=== PATIENT | male | born 1935 | race Caucasian/White ===

== ENCOUNTER 2020-08-04 09:21 | Inpatient (IN) ==
--- NOTE | 2020-08-04 09:53 | ERNOTE ---
Trauma/Assault HPI - General Stated Complaint: weak not feeling well Time Seen by Provider: 08/04/20 09:38 Source: patient, family Exam Limitations: no limitations - Immun/Allergies/Home Medications Immunizations: IMMUNIZATION HX Immunizations Up to Date Yes History of Influenza Vaccine Yes Hx Pneumococcal Vaccination No Allergies/Adverse Reactions: Allergies No Known Allergies Allergy (Verified 08/04/20 09:23) Home Medications: HOME MEDICATIONS cyanocobalamin (vitamin B-12) 1,000 mcg tablet 1,000 mcg PO DAILY #30 tab 02/26/18 [Last Taken Unknown] albuterol sulfate 90 mcg/actuation breath activated powder inhaler 2 inh INHALATION Q6H #1 ea 08/29/19 [Last Taken Unknown] fluticasone propionate 115 mcg-salmeterol 21 mcg/actuation HFA inhaler 2 inh IH BID #12 g 08/30/19 [Last Taken Unknown] furosemide 20 mg tablet 20 mg PO DAILY #30 tab 06/08/20 [Last Taken Unknown] ipratropium 0.5 mg-albuterol 3 mg (2.5 mg base)/3 mL nebulization soln 3 ml IH BID #15 ml 07/02/20 [Last Taken Unknown] Simvastatin [Zocor] 20 mg PO HS 08/04/20 [Last Taken Unknown] Umeclidinium [place] [Incruse Ellipta] 62.5 mcg IH DAILY 08/04/20 [Last Taken Unknown] - History of Present Illness Narrative: Patient states he started feeling bad last week being more weak and tired. He had an episode at least 3 days ago where he believes he passed out and fell. He states since that time he has hardly been able to get up out of bed. He has more shortness of breath some mild cough and increased sputum. Location Occurred: Reports: home Pain Location: Reports: head, back - lower Method of Injury: Reports: fall Severity: mild Modifying Factors - (Improves): Reports: rest Loss of Consciousness: Reports: brief (seconds) Review of Systems - Review of Systems Constitutional: Absent: recent illness, fever, chills EYE: Absent: vision changes ENT: Absent: nose congestion, nasal drainage Respiratory: Present: See HPI, shortness of breath, cough Cardiology: Absent: chest pain, palpitations Gastrointestinal/Abdominal: Present: constipation. Absent: nausea, vomiting, abdominal pain Genitourinary: Absent: frequency, dysuria Musculoskeletal: Present: back pain Skin: Present: dryness, change in color Neurological: Present: dizziness/light-headedness. Absent: numbness, tingling Endocrine: Absent: excessive sweating Hematologic/Lymphatic: Present: easy bruising Medical History (Last Reviewed 08/04/20 @ 09:49 by Ki Lozano DO) AAA (abdominal aortic aneurysm) COPD (chronic obstructive pulmonary disease) Onset Date: Unknown Hyperlipemia Hypertension Onset Date: Unknown Surgical History: Surgical History (Last Reviewed 08/04/20 @ 09:49 by Ki Lozano DO) H/O hernia repair Onset Date: Unknown Family History: Family History (Last Reviewed 08/04/20 @ 09:49 by Ki Lozano DO) Brother Heart disease Social History: (Last Reviewed 08/04/20 @ 09:49 by Ki Lozano DO) Social History: Marital status: household members: spouse Highest level of school completed/degree received: high school graduate Service: No Tobacco: Smoking Status: Former smoker Alcohol: alcohol intake: current Substance Use: substance use type: does not use Dietary Habits: caffeine: Yes Physical Exam - Physical Exam General Appearance: Present: wd/wn, alert, mild distress Head Exam: Present: normal inspection, no evidence of injury Ears, Nose, Throat: Present: normal except -, dry mucous membranes Neck: Present: normal inspection, nontender, supple Respiratory: Present: chest nontender, decreased breath sounds, rales Cardiovascular/Chest: Present: no murmur, tachycardia Gastrointestinal/Abdominal: Present: normal bowel sounds, nontender, nondistended, soft Back Exam: Present: decreased range of motion, muscle spasm Extremity Exam: Present: normal except -, extremity edema - Right greater than left patient states the right is usually more swollen Neurological Exam: Present: alert, oriented, normal mood/affect, no motor/sensory deficits Skin Exam: Present: other - Bruises and dry flaky skin throughout Lymphatic Exam: Present: no adenopathy Detailed Trauma Exam Best Eye Response (Shanell): (4) open spontaneously Best Verbal Response (Shanell): (5) oriented Best Motor Response ([place]): (6) obeys commands Shanell Total: 15 - C-Spine cleared by: Neg history & exam Progress - Results and Orders Patient's Lab Results:: I have reviewed the patient's lab results. Results and Orders: Laboratory Tests 08/04/20 08/04/20 08/04/20 09:37 10:10 10:10 WBC 11.3 H Hgb 10.1 L Hct 32.8 L Plt Count 257 Neutrophils % 87.4 H D-Dimer pCO2 pO2 HCO3 Total CO2 Base Excess ABG pH ABG O2 Sat (Measured) Sodium 136 Potassium 4.1 Chloride 98 BUN 41 H D Creatinine 1.95 H D BUN/Creatinine Ratio 21.0 Random Glucose 98 Lactic Acid, Venous Calcium 8.2 Total Bilirubin 0.8 AST 22 ALT 22 Troponin I 0.260 H* B-Natriuretic Peptide Greater than 34662 H SARS-CoV-2 (PCR) Not detected 08/04/20 08/04/20 08/04/20 10:10 10:10 10:31 WBC Hgb Hct Plt Count Neutrophils % D-Dimer 6.02 H pCO2 45.6 pO2 52.5 L HCO3 29.7 H Total CO2 31.1 H Base Excess 4.8 H ABG pH 7.43 ABG O2 Sat (Measured) 87.9 L Sodium Potassium Chloride BUN Creatinine BUN/Creatinine Ratio Random Glucose Lactic Acid, Venous 1.7 Calcium Total Bilirubin AST ALT Troponin I B-Natriuretic Peptide SARS-CoV-2 (PCR) - Vital Signs Patient's Vital Signs:: I have reviewed the patient's vital signs. Vital Signs: Vital Signs 08/04/20 09:22 Temperature 36.4 C Pulse Rate 110 H Respiratory Rate 28 H Blood Pressure 87/51 L O2 Sat by Pulse Oximetry 80 L - EKG EKG #1 EKG: NSR, premature ventricular contraction, nonspecific ST T wave changes EKG read: Interp. by me - X-Ray X-Ray #1 X-Ray: chest Interpretation: Reviewed by me X-ray Comments: IMPRESSION: NO APPRECIABLE INTERVAL CHANGE SINCE TO 05/22/2000 STUDY, DEMONSTRATING EXTENSIVE BILATERAL BULLOUS EMPHYSEMA AND CHRONIC PLEURAL THICKENING AND/OR PLEURAL FLUID. NO DEFINITE NEW OR ACUTE INFILTRATES OR EFFUSIONS. Electronically signed by Jerrod Yadav MD. - CT/Ultrasound CT/Ultrasound Narrative: CT lumbar spine: IMPRESSION: 1. SUSPECTED ACUTE, COMMINUTED, MILD TO MODERATELY DISPLACED COMPRESSION FRACTURE OF L1. RETROPULSION OF THE POSTERIOR SUPERIOR L1 ENDPLATE CAUSING MODERATE SPINAL CANAL AND BILATERAL LATERAL RECESS NARROWING. 2. 4.6 CM FUSIFORM INFRARENAL ABDOMINAL AORTIC ANEURYSM. FINDINGS DISCUSSED WITH THE EMERGENCY DEPARTMENT PHYSICIAN AT 1320 HOURS. Electronically signed by Jerrod Yadav MD. CTA chest: IMPRESSION: NO ACUTE PULMONARY EMBOLUS. EXTENSIVE BILATERAL PULMONARY BOLUS EMPHYSEMA AND SCARRING WITH INCREASED PLEURAL AND PARENCHYMAL OPACITIES SUGGESTING POSSIBLE ACUTE PNEUMONIA AND/OR ATELECTASIS. CLINICAL AND LAB CORRELATION RECOMMENDED. MODERATE COMPRESSION FRACTURE OF L1, NEW SINCE THE PRIOR JUNE 2019 CT CHEST AND THE MAY 2020 2 VIEW CHEST X-RAY. CORRELATION WITH PATIENT HISTORY RECOMMENDED. Electronically signed by Jerrod Yadav MD. - Progress/Reassessment Chief Complaint: Fall Progress:: Improved Progress Note-Subjective: 08/04/20 13:[address] Dominguez about admission he agrees with admission Departure Clinical Impression: Pneumonia Qualifiers: Pneumonia type: due to unspecified organism Laterality: bilateral Lung location: lower lobe of lung Qualified Code(s): J18.9 - Pneumonia, unspecified organism CHF (congestive heart failure) Qualifiers: Heart failure type: diastolic Heart failure chronicity: acute on chronic Qualified Code(s): I50.33 - Acute on chronic diastolic (congestive) heart failure Lumbar compression fracture Qualifiers: Lumbar vertebra fracture level: L1 Fracture healing: with routine healing - Departure Disposition: Still a patient Condition: Stable Critical Care Time - Critical Care Critical Time Spent:: No
[2020-08-04] MEDS ORDERED: NORMAL SALINE 1,000 ML IV ONE (09:57)
[2020-08-04 10:15] LABS: Hematocrit 32.8 % (42.0-52.0); Hemoglobin 10.1 gm/dL (13.5-18.0); Mean Cell Volume 92.1 fl (78-100); Mean Corpuscular Hemoglobin 28.4 pg (27-31); Mean Corpuscular Hgb Conc 30.8 g/dl (32-36); Mean Platelet Volume 9.9 fl (8-11.3); Neutrophil # 9.9 K/mm3 (1.3-6.0); Neutrophil % 87.4 % (42-75.0); Platelet Count 257 K/mm3 (150-450); Red Blood Count 3.56 M/mm3 (4.7-6.0); Red Cell Distribution Width 15.9 % (11.5-14.0); White Blood Count 11.3 K/mm3 (4.0-10.5)
[2020-08-04 10:34] LABS: ALT 22 U/L (19-67); AST 22 U/L (0-48); Alkaline Phosphatase * 101 U/L (50-170); Anion Gap 9.7 mmol/L (6.8-13.8); BNP * Greater than 35000 pg/mL (5-650); Bilirubin, Total 0.8 mg/dL (0.0-1.1); Blood Urea Nitrogen 41 mg/dL (6-23); Ca. Corrected For Albumin 9.5 mg/dL (8.4-10.2); Calcium * 8.2 mg/dL (7.9-10.9); Carbon Dioxide 32.4 mmol/L (24-32.6); Chloride 98 mmol/L (97-106); Glucose * 98 mg/dL (70-110); Potassium 4.1 mmol/L (3.4-4.6); Sodium 136 mmol/L (132-142); Total Protein 7.3 gm/dL (6.2-8.2)
[2020-08-04] MEDS ORDERED: cefTRIAXone SODIUM 1,000 MG/100 ML BAG IV ONE (13:21)
[2020-08-04] MEDS ORDERED: AZITHROMYCIN 250 MG TABLET PO ONE (13:21)
--- NOTE | 2020-08-04 14:47 | HP ---
Chief Complaint - Chief Complaint Date of Service: 08/04/20 Time of Service: 14:47 Chief Complaint: Weakness, falls, shortness of breath History of Present Illness: Frank is an 85 yo male with chronic respiratory failure secondary to emphysema. He is on 2lpm continuous at home. He reports for the last month he has been progressively weaker and short of breath. He has had falls at home with no specific injury. He does report some low back pain at times, but nothing significant. He presented to the [facility] ER for fall and gradually worsen strength and breathing. Evaluation in the ER showed BNP of 30K, leukocytosis of 11.3, and elevated D-dimer. Chest CT was completed which showed pneumonia and imaging also showed compression fracture of L1. He does mention low back pain at times but reports it does not usually bother him that much. He reports occasional cough, denies fever or chills, but does admit to worsening shortness of breath. COVID was negative. Medical History (Last Reviewed 08/04/20 @ 14:20 by Stephanie Amor RN) AAA (abdominal aortic aneurysm) COPD (chronic obstructive pulmonary disease) Onset Date: Unknown Hyperlipemia Hypertension Onset Date: Unknown Surgical History: Surgical History (Last Reviewed 08/04/20 @ 14:20 by Stephanie Amor RN) H/O hernia repair Onset Date: Unknown Family History: Family History (Last Reviewed 08/04/20 @ 14:20 by Stephanie Amor RN) Brother Heart disease Social History: (Last Updated 08/04/20 @ 14:21 by Stephanie Amor RN) Social History: Marital status: / household members: family Highest level of school completed/degree received: high school graduate Service: No Tobacco: Smoking Status: Former smoker Alcohol: alcohol intake: current Substance Use: substance use type: does not use Dietary Habits: caffeine: Yes Review Of Systems (GEN) - Review of Systems Generalized/Overall Review: Present: Weakness. Absent: Chills, Fever EENTM: Present: No Symptoms Reported Respiratory: Present: Cough, Shortness of Breath Cardiac: Absent: Chest Pain, Edema, Palpitations, Syncope Abdominal: Absent: Nausea, Vomiting, Hematemesis, Abdominal Pain Genitourinary: Present: No Symptoms Reported Musculoskeletal: Present: Back Pain Neurological: Present: No Symptoms Reported Skin: Present: No Symptoms Reported Endocrine: Present: No Symptoms Reported Immunizations: IMMUNIZATION HX Immunizations Up to Date Yes History of Influenza Vaccine Yes Hx Pneumococcal Vaccination No Allergies/Adverse Reactions: Allergies Allergy/AdvReac Type Severity Reaction Status Date / Time No Known Allergies Allergy Verified 08/04/20 09:23 Home Medications: HOME MEDICATIONS cyanocobalamin (vitamin B-12) 1,000 mcg tablet 1,000 mcg PO DAILY #30 tab 02/26/18 [Last Taken Unknown] albuterol sulfate 90 mcg/actuation breath activated powder inhaler 2 inh INHALA TION Q6H #1 ea 08/29/19 [Last Taken Unknown] fluticasone propionate 115 mcg-salmeterol 21 mcg/actuation HFA inhaler 2 inh IH BID #12 g 08/30/19 [Last Taken Unknown] furosemide 20 mg tablet 20 mg PO DAILY #30 tab 06/08/20 [Last Taken Unknown] ipratropium 0.5 mg-albuterol 3 mg (2.5 mg base)/3 mL nebulization soln 3 ml IH BID #15 ml 07/02/20 [Last Taken Unknown] Simvastatin [Zocor] 20 mg PO HS 08/04/20 [Last Taken Unknown] Umeclidinium [place] [Incruse Ellipta] 62.5 mcg IH DAILY 08/04/20 [Last Taken Unknown] Exam - Exam Vital Signs: Vital Signs - Last Taken Temp 36.9 C 08/04/20 14:15 Pulse 73 08/04/20 14:15 Resp 24 H 08/04/20 14:15 BP 112/60 08/04/20 14:15 Pulse Ox 92 L 08/04/20 14:15 Constitutional: Present: Alert, Oriented x3, Cooperative, No distress ENT Exam: Present: hearing grossly normal Eye Exam: bilateral eye: normal inspection Respiratory: Present: decreased breath sounds, wheezing, other - mild respiratory distress with tachypnea Cardiovascular/Chest: Present: no murmur, other - irregular Peripheral Pulses: radial (R): 2+, radial (L): 2+ Abdomen: Present: Normal bowel sounds, soft, nontender, nondistended Skin Exam: Present: normal color, warm/dry, no cyanosis Lymphatic: Present: no adenopathy Appearance: Present: appropriate appearance, appropriate insight Eye contact: Present: cooperative, good eye contact, normal speech Thoughts: Present: normal thought pattern, no apparent hallucination Diagnostic Studies: Abnormal Lab Results 08/04/20 08/04/20 08/04/20 Range/Units 10:10 10:10 10:10 WBC 11.3 H (4.0-10.5) K/mm3 RBC 3.56 L (4.7-6.0) M/mm3 Hgb 10.1 L (13.5-18.0) gm/dL Hct 32.8 L (42.0-52.0) % MCHC 30.8 L (32-36) g/dl RDW 15.9 H (11.5-14.0) % Immature Gran % (Auto) 0.90 H (0.001-0.429) % Immature Gran # (Auto) 0.10 H (0.000-0.0310) K/mm3 Neutrophils % 87.4 H (42-75.0) % Lymphocytes % 5.6 L (20-51) % Neutrophils # 9.9 H (1.3-6.0) K/mm3 Lymphocytes # 0.64 L (1.5-3.5) k/mm3 D-Dimer 6.02 H (0.19-0.49) ug/mL pO2 (83.0-108.0) mmHg HCO3 (21.0-28.0) mmol/L Total CO2 (19.0-24.0) mmol/L Base Excess (-2.0-3.0) mmol/L ABG O2 Sat (Measured) (94.0-98.0) % BUN 41 H D (6-23) mg/dL Creatinine 1.95 H D (0.4-1.4) mg/dL Est GFR (Non-Af Amer) 35 L D (60-130) mL/min Troponin I 0.260 H* (0.00-0.10) ng/mL B-Natriuretic Peptide Greater [place] 18064 H (5-650) pg/mL Albumin 2.0 L (3.4-5.0) gm/dl 08/04/20 08/04/20 Range/Units 10:31 12:23 WBC (4.0-10.5) K/mm3 RBC (4.7-6.0) M/mm3 Hgb (13.5-18.0) gm/dL Hct (42.0-52.0) % MCHC (32-36) g/dl RDW (11.5-14.0) % Immature Gran % (Auto) (0.001-0.429) % Immature Gran # (Auto) (0.000-0.0310) K/mm3 Neutrophils % (42-75.0) % Lymphocytes % (20-51) % Neutrophils # (1.3-6.0) K/mm3 Lymphocytes # (1.5-3.5) k/mm3 D-Dimer (0.19-0.49) ug/mL pO2 52.5 L (83.0-108.0) mmHg HCO3 29.7 H (21.0-28.0) mmol/L Total CO2 31.1 H (19.0-24.0) mmol/L Base Excess 4.8 H (-2.0-3.0) mmol/L ABG O2 Sat (Measured) 87.9 L (94.0-98.0) % BUN (6-23) mg/dL Creatinine (0.4-1.4) mg/dL Est GFR (Non-Af Amer) (60-130) mL/min Troponin I 0.225 H* (0.00-0.10) ng/mL B-Natriuretic Peptide (5-650) pg/mL Albumin (3.4-5.0) gm/dl Laboratory Results WBC 11.3 K/mm3 (4.0-10.5) H 08/04/20 10:10 RBC 3.56 M/mm3 (4.7-6.0) L 08/04/20 10:10 Hgb 10.1 gm/dL (13.5-18.0) L 08/04/20 10:10 Hct 32.8 % (42.0-52.0) L 08/04/20 10:10 MCV 92.1 fl (78-100) 08/04/20 10:10 MCH 28.4 pg (27-31) 08/04/20 10:10 MCHC 30.8 g/dl (32-36) L 08/04/20 10:10 RDW 15.9 % (11.5-14.0) H 08/04/20 10:10 Plt Count 257 K/mm3 (150-450) 08/04/20 10:10 MPV 9.9 fl (8-11.3) 08/04/20 10:10 Immature Gran % (Auto) 0.90 % (0.001-0.429) H 08/04/20 10:10 Immature Gran # (Auto) 0.10 K/mm3 (0.000-0.0310) H 08/04/20 10:10 Neutrophils % 87.4 % (42-75.0) H 08/04/20 10:10 Lymphocytes % 5.6 % (20-51) L 08/04/20 10:10 Monocytes % 5.2 % (0.0-9) 08/04/20 10:10 Eosinophils % 0.7 % (0.0-3.0) 08/04/20 10:10 Basophils % 0.2 % (0.0-1.0) 08/04/20 10:10 Nucleated RBC % 0.0 k/mm3 (0-1) 08/04/20 10:10 Neutrophils # 9.9 K/mm3 (1.3-6.0) H 08/04/20 10:10 Lymphocytes # 0.64 k/mm3 (1.5-3.5) L 08/04/20 10:10 Monocytes # 0.6 k/mm3 (0.0-1.0) 08/04/20 10:10 Eosinophils # 0.1 k/mm3 (0.0-0.7) 08/04/20 10:10 Absolute Basophils 0.0 k/mm3 (0.0-0.1) 08/04/20 10:10 D-Dimer 6.02 ug/mL (0.19-0.49) H 08/04/20 10:10 pCO2 45.6 mmHg (35.0-48.0) 08/04/20 10:31 pO2 52.5 mmHg (83.0-108.0) L 08/04/20 10:31 HCO3 29.7 mmol/L (21.0-28.0) H 08/04/20 10:31 Total CO2 31.1 mmol/L (19.0-24.0) H 08/04/20 10:31 Base Excess 4.8 mmol/L (-2.0-3.0) H 08/04/20 10:31 ABG pH 7.43 (7.35-7.45) 08/04/20 10:31 ABG O2 Sat (Measured) 87.9 % (94.0-98.0) L 08/04/20 10:31 Sodium 136 mmol/L (132-142) 08/04/20 10:10 Plasma Sodium 136 mmol/L (130-142) 08/04/20 10:10 Potassium 4.1 mmol/L (3.4-4.6) 08/04/20 10:10 Chloride 98 mmol/L (97-106) 08/04/20 10:10 Carbon Dioxide 32.4 mmol/L (24-32.6) 08/04/20 10:10 Anion Gap 9.7 mmol/L (6.8-13.8) 08/04/20 10:10 BUN 41 mg/dL (6-23) H D 08/04/20 10:10 Creatinine 1.95 mg/dL (0.4-1.4) H D 08/04/20 10:10 Est GFR (Non-Af Amer) 35 mL/min (60-130) L D 08/04/20 10:10 BUN/Creatinine Ratio 21.0 (9.0-21.6) 08/04/20 10:10 Random Glucose 98 mg/dL (70-110) 08/04/20 10:10 Lactic Acid, Venous 1.7 mmol/L (0.4-2.0) 08/04/20 10:10 Calcium 8.2 mg/dL (7.9-10.9) 08/04/20 10:10 Calcium Adj for Albumin 9.5 mg/dL (8.4-10.2) 08/04/20 10:10 Total Bilirubin 0.8 mg/dL (0.0-1.1) 08/04/20 10:10 AST 22 U/L (0-48) 08/04/20 10:10 ALT 22 U/L (19-67) 08/04/20 10:10 Alkaline Phosphatase 101 U/L (50-170) 08/04/20 10:10 Troponin I 0.225 ng/mL (0.00-0.10) H* 08/04/20 12:23 B-Natriuretic Peptide Greater than 92291 pg/mL (5-650) H 08/04/20 10:10 Total Protein 7.3 gm/dL (6.2-8.2) 08/04/20 10:10 Albumin 2.0 gm/dl (3.4-5.0) L 08/04/20 10:10 SARS-CoV-2 (PCR) Not detected (NotDetected) 08/04/20 09:37 Assessment/Plan - Narrative Narrative: Frank is an 85 yo male with acute on chronic respiratory failure secondary to a combination of community acquired pneumonia (based on Chest CT in bibasilar lung magana and leukocytosis) and acute on chronic diastolic CHF based on BNP of >30k and lower extremity edema. He was hypoxic at 80% on his usual 2lpm of oxygen that he uses continuously at home for COPD. He does not appear to be in a COPD exacerbation. He will be treated with rocephin/azithromycin for pneumonia and lasix IV prn for CHF exacerbation. Will use 3lpm of oxygen at this time but with treatment will attempt to wean back to home O2 of 2lpm. His Chest CT showed no evidence of pulmonary embolism and COVID was negative, however Chest CT did show a 4cm AAA and an L1 compression fracture that is contributing to his frailty and weakness. He does have some low back pain but it appears to be mild. This will be followed as outpatient at this time. Will admit to acute inpatient status due to acute on chronic respiratory failure due to pneumonia and CHF. His pneumonia is significant and requires inpatient treatment due to his age and elevated BUN giving him a 6.8% 30 days all cause mortality on his CURB-65 pneumonia severity score. His status will be inpatient and will consult PT due to his weakness and low back pain. He may need rehab at a nursing facility following inpatient discharge in approximately 3-4 days. - Assessment/Plan (1) Acute and chronic respiratory failure Problem: Acute Qualifiers: Respiratory failure complication: hypoxia Qualified Code(s): J96.21 - Acute and chronic respiratory failure with hypoxia (2) Pneumonia Problem: Acute Qualifiers: Pneumonia type: due to unspecified organism Laterality: bilateral Lung location: lower lobe of lung Qualified Code(s): J18.9 - Pneumonia, unspecified organism (3) CHF (congestive heart failure) Problem: Chronic Qualifiers: Heart failure type: diastolic Heart failure chronicity: acute on chronic Qualified Code(s): I50.33 - Acute on chronic diastolic (congestive) heart failure (4) AAA (abdominal aortic aneurysm) without rupture Problem: Chronic (5) COPD (chronic obstructive pulmonary disease) Problem: Chronic Qualifiers: COPD type: emphysema Emphysema type: panlobular Qualified Code(s): J43.1 - Panlobular emphysema (6) CKD (chronic kidney disease) Problem: Chronic Qualifiers: Chronic kidney disease stage: stage 3 (moderate) (7) Lumbar compression fracture Problem: Acute Qualifiers: Lumbar vertebra fracture level: L1
[2020-08-04] MEDS ORDERED: ACETAMINOPHEN 500 MG TABLET PO PRN (14:48)
[2020-08-04] MEDS: ALBUTEROL SULFATE 2.5 MG/0.5 ML VIAL.NEB IH SCH ×2 (17:08→18:05)
[2020-08-04] MEDS: ALBUTEROL SULFATE/IPRATROPIUM 3 ML NEBU IH SCH ×2 (17:09→18:05)
[2020-08-04] MEDS: BUDESONIDE 0.25 MG/2 ML VIAL.NEB PO SCH ×2 (17:09→18:05)
[2020-08-04 20:12] LABS: Urine Bilirubin Negative (NEGATIVE); Urine Blood 25 /ul (NEGATIVE); Urine Ketone 5 mg/dL (NEGATIVE); Urine Nitrite Negative (NEGATIVE); Urine Protein Negative (NEGATIVE); Urine Specific Gravity 1.015 SP.GR. (1.005-1.030); Urine Urobilinogen Normal (NORMAL); Urine pH 5.5 pH (5.0-7.0)
[2020-08-04 20:21] LABS: Urine Appearance Clear (CLEAR); Urine Bacteria 1+; Urine Color Yellow; Urine RBC 0-5 /hpf (0-5); Urine WBC None Seen /hpf (0-5)
[2020-08-04] MEDS: SIMVASTATIN 20 MG TABLET PO SCH (20:36)
[2020-08-05] MEDS: ALBUTEROL SULFATE 2.5 MG/0.5 ML VIAL.NEB IH SCH ×4 (00:31→18:03)
[2020-08-05] MEDS: ALBUTEROL SULFATE/IPRATROPIUM 3 ML NEBU IH SCH ×2 (06:42→18:02)
[2020-08-05] MEDS: BUDESONIDE 0.25 MG/2 ML VIAL.NEB PO SCH ×2 (06:43→18:03)
[2020-08-05] MEDS: AZITHROMYCIN 250 MG TABLET PO SCH (09:01)
[2020-08-05] MEDS: TIOTROPIUM BROMIDE 5 CAP INHALER IH SCH (09:01)
[2020-08-05] MEDS: CYANOCOBALAMIN 1,000 MCG TABLET PO SCH (09:02)
[2020-08-05] MEDS ORDERED: FUROSEMIDE 10 MG/ML VIAL IV ONE (13:06)
[2020-08-05] MEDS: SIMVASTATIN 20 MG TABLET PO SCH (21:38)
--- NOTE | 2020-08-05 21:39 | PN ---
Subjective - Date and Time Seen Date: 08/05/20 Time: 10:15 Subjective Narrative: Frank reports no significant change. Nursing had to increase his oxygen from 3lpm to 5lpm earlier this morning and then was able to wean down to 4lpm. He does admit that earlier he did have worsening shortness of breath but it is better now. No fever, chills, nausea, or vomiting. Objective - Vitals Vitals: Last Vital Signs Temp 36.3 C 08/05/20 18:13 Pulse 86 08/05/20 18:13 Resp 24 H 08/05/20 18:13 BP 110/66 08/05/20 18:13 Pulse Ox 100 08/05/20 18:13 - Exam Constitutional: Present: Alert, Oriented x3, Cooperative ENT Exam: Present: hearing grossly normal Respiratory: Present: no respiratory distress, decreased breath sounds Cardiovascular/Chest: Present: regular rate, rhythm, no murmur Abdomen: Present: Normal bowel sounds, soft, nontender, nondistended, no rebound tenderness Skin Exam: Present: normal color, warm/dry, no cyanosis Neurologic: Present: alert, normal mood/affect, oriented x 3 Appearance: Present: appropriate appearance, appropriate insight Eye contact: Present: cooperative, good eye contact, normal speech Thoughts: Present: normal thought pattern, no apparent hallucination Assessment/Plan Plan Narrative: Slight worsening of oxygen requirements this morning. Currently on 4lpm instead of his home 2lpm. Will continue antibiotics, will give dose of IV lasix this morning. Continue to wean to his baseline of 2lpm. Continue PT. Hoping to be able to discharge to SNF in 2-5 days. - Problems/Diagnosis (1) Acute and chronic respiratory failure Problem: Acute Qualifiers: Respiratory failure complication: hypoxia Qualified Code(s): J96.21 - Acute and chronic respiratory failure with hypoxia (2) Pneumonia Problem: Acute Qualifiers: Pneumonia type: due to unspecified organism Laterality: bilateral Lung location: lower lobe of lung Qualified Code(s): J18.9 - Pneumonia, unspecified organism (3) CHF (congestive heart failure) Problem: Chronic Qualifiers: Heart failure type: diastolic Heart failure chronicity: acute on chronic Qualified Code(s): I50.33 - Acute on chronic diastolic (congestive) heart failure (4) AAA (abdominal aortic aneurysm) without rupture Problem: Chronic (5) COPD (chronic obstructive pulmonary disease) Problem: Chronic Qualifiers: COPD type: emphysema Emphysema type: panlobular Qualified Code(s): J43.1 - Panlobular emphysema (6) CKD (chronic kidney disease) Problem: Chronic Qualifiers: Chronic kidney disease stage: stage 3 (moderate) (7) Lumbar compression fracture Problem: Acute Qualifiers: Lumbar vertebra fracture level: L1 Fracture healing: with routine healing
[2020-08-06] MEDS: ALBUTEROL SULFATE 2.5 MG/0.5 ML VIAL.NEB IH SCH ×4 (00:55→18:11)
[2020-08-06] MEDS: ALBUTEROL SULFATE/IPRATROPIUM 3 ML NEBU IH SCH ×2 (06:50→18:11)
[2020-08-06] MEDS: BUDESONIDE 0.25 MG/2 ML VIAL.NEB PO SCH ×2 (06:51→18:11)
[2020-08-06 09:01] LABS: Hematocrit 29.5 % (42.0-52.0); Mean Cell Volume 91.9 fl (78-100); Mean Corpuscular Hgb Conc 30.5 g/dl (32-36); Mean Platelet Volume 9.6 fl (8-11.3); Neutrophil # 8.8 K/mm3 (1.3-6.0); Neutrophil % 85.7 % (42-75.0); Platelet Count 250 K/mm3 (150-450); Red Blood Count 3.21 M/mm3 (4.7-6.0); Red Cell Distribution Width 16.2 % (11.5-14.0); White Blood Count 10.2 K/mm3 (4.0-10.5)
[2020-08-06] MEDS: CYANOCOBALAMIN 1,000 MCG TABLET PO SCH (09:11)
[2020-08-06] MEDS: AZITHROMYCIN 250 MG TABLET PO SCH (09:12)
[2020-08-06] MEDS: TIOTROPIUM BROMIDE 5 CAP INHALER IH SCH (09:12)
[2020-08-06 09:23] LABS: Albumin * 1.7 gm/dl (3.4-5.0); Anion Gap 6.1 mmol/L (6.8-13.8); BUN/Creatinine Ratio 19.4 (9.0-21.6); Bilirubin, Total 0.5 mg/dL (0.0-1.1); Ca. Corrected For Albumin 9.5 mg/dL (8.4-10.2); Potassium 3.1 mmol/L (3.4-4.6); Total Protein 6.3 gm/dL (6.2-8.2)
[2020-08-06] MEDS ORDERED: FUROSEMIDE 10 MG/ML VIAL IV ONE (09:44)
[2020-08-06] MEDS ORDERED: POTASSIUM CHLORIDE 20 MEQ TABLET.SA PO ONE (11:05)
[2020-08-06] MEDS: SIMVASTATIN 20 MG TABLET PO SCH (20:24)
--- NOTE | 2020-08-06 22:19 | PN ---
Subjective - Date and Time Seen Date: 08/06/20 Time: 16:45 Subjective Narrative: Frank reports feeling a little stronger. Denies shortness of breath. Oxygen requirements have fluctuated from 3-5lpm today, still higher than his baseline of 2lpm. He has walked to the door and back and says it went better than yesterday. Unable to give lasix today due to lower blood pressure. Less edema present in lower extremity today. Objective - Vitals Vitals: Last Vital Signs Temp 38.0 C 08/06/20 18:47 Pulse 95 08/06/20 18:47 Resp 28 H 08/06/20 18:47 BP 107/59 08/06/20 18:47 Pulse Ox 96 08/06/20 21:16 - Abnormal Lab Findings Abnormal Lab Findings: Abnormal Lab Results 08/06/20 08/06/20 Range/Units 08:44 08:44 RBC 3.21 L (4.7-6.0) M/mm3 Hgb 9.0 L (13.5-18.0) gm/dL Hct 29.5 L (42.0-52.0) % MCHC 30.5 L (32-36) g/dl RDW 16.2 H (11.5-14.0) % Immature Gran % (Auto) 0.60 H (0.001-0.429) % Immature Gran # (Auto) 0.06 H (0.000-0.0310) K/mm3 Neutrophils % 85.7 H (42-75.0) % Lymphocytes % 6.2 L (20-51) % Neutrophils # 8.8 H (1.3-6.0) K/mm3 Lymphocytes # 0.63 L (1.5-3.5) k/mm3 Potassium 3.1 L D (3.4-4.6) mmol/L Carbon Dioxide 34.0 H (24-32.6) mmol/L Anion Gap 6.1 L (6.8-13.8) mmol/L BUN 31 H (6-23) mg/dL Creatinine 1.60 H (0.4-1.4) mg/dL Est GFR (Non-Af Amer) 44 L D (60-130) mL/min Random Glucose 137 H D (70-110) mg/dL ALT 16 L (19-67) U/L Albumin 1.7 L (3.4-5.0) gm/dl - Exam Constitutional: Present: Alert, Oriented x3, Cooperative ENT Exam: Present: hearing grossly normal Respiratory: Present: decreased breath sounds Cardiovascular/Chest: Present: regular rate, rhythm, no murmur Abdomen: Present: Normal bowel sounds, soft, nontender, nondistended Extremity: Present: lower extremity edema - 1+ Skin Exam: Present: normal color, warm/dry, no cyanosis Appearance: Present: appropriate appearance, appropriate insight Eye contact: Present: cooperative, good eye contact, normal speech Assessment/Plan Plan Narrative: Increased oxygen requirements continue. He overall feels stronger. Continue antibiotics, lasix prn, and strengthening. Anticipate to improve pneumonia and wean back to baseline will require continued treatment for approximately 3 more days. - Problems/Diagnosis (1) Acute and chronic respiratory failure Problem: Acute Qualifiers: Respiratory failure complication: hypoxia Qualified Code(s): J96.21 - Acute and chronic respiratory failure with hypoxia (2) Pneumonia Problem: Acute Qualifiers: Pneumonia type: due to unspecified organism Laterality: bilateral Lung location: lower lobe of lung Qualified Code(s): J18.9 - Pneumonia, unspecified organism (3) CHF (congestive heart failure) Problem: Chronic Qualifiers: Heart failure type: diastolic Heart failure chronicity: acute on chronic Qualified Code(s): I50.33 - Acute on chronic diastolic (congestive) heart failure (4) AAA (abdominal aortic aneurysm) without rupture Problem: Chronic (5) COPD (chronic obstructive pulmonary disease) Problem: Chronic Qualifiers: COPD type: emphysema Emphysema type: panlobular Qualified Code(s): J43.1 - Panlobular emphysema (6) CKD (chronic kidney disease) Problem: Chronic Qualifiers: Chronic kidney disease stage: stage 3 (moderate) (7) Lumbar compression fracture Problem: Acute Qualifiers: Lumbar vertebra fracture level: L1 Fracture healing: with routine healing
[2020-08-07] MEDS: ALBUTEROL SULFATE 2.5 MG/0.5 ML VIAL.NEB IH SCH ×4 (00:24→18:03)
[2020-08-07] MEDS: ALBUTEROL SULFATE/IPRATROPIUM 3 ML NEBU IH SCH ×2 (06:09→18:03)
[2020-08-07] MEDS: BUDESONIDE 0.25 MG/2 ML VIAL.NEB PO SCH ×2 (06:10→18:03)
[2020-08-07 06:42] LABS: Hematocrit 28.5 % (42.0-52.0); Hemoglobin 8.7 gm/dL (13.5-18.0); Mean Cell Volume 92.2 fl (78-100); Mean Corpuscular Hemoglobin 28.2 pg (27-31); Mean Corpuscular Hgb Conc 30.5 g/dl (32-36); Mean Platelet Volume 10.1 fl (8-11.3); Neutrophil # 8.8 K/mm3 (1.3-6.0); Neutrophil % 81.3 % (42-75.0); Platelet Count 244 K/mm3 (150-450); Red Blood Count 3.09 M/mm3 (4.7-6.0); Red Cell Distribution Width 16.3 % (11.5-14.0); White Blood Count 10.9 K/mm3 (4.0-10.5)
[2020-08-07 06:53] LABS: Albumin * 1.5 gm/dl (3.4-5.0); Anion Gap 4.1 mmol/L (6.8-13.8); BUN/Creatinine Ratio 17.2 (9.0-21.6); Bilirubin, Total 0.5 mg/dL (0.0-1.1); Ca. Corrected For Albumin 9.3 mg/dL (8.4-10.2); Calcium * 7.6 mg/dL (7.9-10.9); Carbon Dioxide 34.7 mmol/L (24-32.6); Potassium 3.8 mmol/L (3.4-4.6); Total Protein 5.6 gm/dL (6.2-8.2)
[2020-08-07] MEDS: AZITHROMYCIN 250 MG TABLET PO SCH (09:23)
[2020-08-07] MEDS: CYANOCOBALAMIN 1,000 MCG TABLET PO SCH (09:23)
[2020-08-07] MEDS: TIOTROPIUM BROMIDE 5 CAP INHALER IH SCH (09:23)
--- NOTE | 2020-08-07 16:10 | PN ---
Subjective - Date and Time Seen Date: 08/07/20 Time: 12:30 Subjective Narrative: Frank reports feeling about the same today. His oxygen requirement has fluctuated from 3lpm to 5lpm in the last 24 hours. He is currently on 4lpm. Blood pressure has trended low normal. Did not give lasix this AM. No fever, chills, nausea, or vomiting. He is currently eating lunch and feels his appetite is ok. Objective - Vitals Vitals: Last Vital Signs Temp 37.3 C 08/07/20 14:42 Pulse 78 08/07/20 14:42 Resp 32 H 08/07/20 14:42 BP 91/35 08/07/20 14:42 Pulse Ox 90 L 08/07/20 14:42 - Abnormal Lab Findings Abnormal Lab Findings: Abnormal Lab Results 08/07/20 08/07/20 Range/Units 06:25 06:25 WBC 10.9 H (4.0-10.5) K/mm3 RBC 3.09 L (4.7-6.0) M/mm3 Hgb 8.7 L (13.5-18.0) gm/dL Hct 28.5 L (42.0-52.0) % MCHC 30.5 L (32-36) g/dl RDW 16.3 H (11.5-14.0) % Immature Gran % (Auto) 0.80 H (0.001-0.429) % Immature Gran # (Auto) 0.09 H (0.000-0.0310) K/mm3 Neutrophils % 81.3 H (42-75.0) % Lymphocytes % 9.1 L (20-51) % Neutrophils # 8.8 H (1.3-6.0) K/mm3 Lymphocytes # 0.99 L (1.5-3.5) k/mm3 Carbon Dioxide 34.7 H (24-32.6) mmol/L Anion Gap 4.1 L (6.8-13.8) mmol/L BUN 26 H (6-23) mg/dL Creatinine 1.51 H (0.4-1.4) mg/dL Est GFR (Non-Af Amer) 47 L (60-130) mL/min Calcium 7.6 L (7.9-10.9) mg/dL ALT 15 L (19-67) U/L Total Protein 5.6 L (6.2-8.2) gm/dL Albumin 1.5 L (3.4-5.0) gm/dl - Exam Constitutional: Present: Alert, Oriented x3, Cooperative, No distress ENT Exam: Present: hearing grossly normal Respiratory: Present: decreased breath sounds Cardiovascular/Chest: Present: regular rate, rhythm, no murmur Abdomen: Present: Normal bowel sounds, soft, nontender, nondistended, no rebound tenderness Skin Exam: Present: normal color, warm/dry, no cyanosis Neurologic: Present: alert, normal mood/affect, oriented x 3 Appearance: Present: appropriate appearance, appropriate insight Eye contact: Present: cooperative, good eye contact, normal speech Assessment/Plan Plan Narrative: Frank is holding stable today. His respiratory status remains worse than his prior baseline. Continue to treat pneumonia. Time will tell if this is a new baseline for him or if it will improve with treatment to get back to his baseline. Continue therapy. Continue antibiotics. Potential discharge to SNF on Monday (3 days) if he remains medically stable. - Problems/Diagnosis (1) Acute and chronic respiratory failure Problem: Acute Qualifiers: Respiratory failure complication: hypoxia Qualified Code(s): J96.21 - Acute and chronic respiratory failure with hypoxia (2) Pneumonia Problem: Acute Qualifiers: Pneumonia type: due to unspecified organism Laterality: bilateral Lung location: lower lobe of lung Qualified Code(s): J18.9 - Pneumonia, unspecified organism (3) CHF (congestive heart failure) Problem: Chronic Qualifiers: Heart failure type: diastolic Heart failure chronicity: acute on chronic Qualified Code(s): I50.33 - Acute on chronic diastolic (congestive) heart failure (4) AAA (abdominal aortic aneurysm) without rupture Problem: Chronic (5) COPD (chronic obstructive pulmonary disease) Problem: Chronic Qualifiers: COPD type: emphysema Emphysema type: panlobular Qualified Code(s): J43.1 - Panlobular emphysema (6) CKD (chronic kidney disease) Problem: Chronic Qualifiers: Chronic kidney disease stage: stage 3 (moderate) (7) Lumbar compression fracture Problem: Acute Qualifiers: Lumbar vertebra fracture level: L1 Fracture healing: with routine healing
[2020-08-07] MEDS: SIMVASTATIN 20 MG TABLET PO SCH (20:18)
[2020-08-08] MEDS: ALBUTEROL SULFATE 2.5 MG/0.5 ML VIAL.NEB IH SCH ×4 (00:17→18:02)
[2020-08-08] MEDS: BUDESONIDE 0.25 MG/2 ML VIAL.NEB PO SCH ×2 (05:59→18:02)
[2020-08-08] MEDS: ALBUTEROL SULFATE/IPRATROPIUM 3 ML NEBU IH SCH ×2 (05:59→18:02)
[2020-08-08 08:23] LABS: Hematocrit 29.9 % (42.0-52.0); Hemoglobin 9.2 gm/dL (13.5-18.0); Mean Corpuscular Hemoglobin 28.3 pg (27-31); Mean Corpuscular Hgb Conc 30.8 g/dl (32-36); Mean Platelet Volume 9.9 fl (8-11.3); Neutrophil # 10.7 K/mm3 (1.3-6.0); Neutrophil % 86.4 % (42-75.0); Platelet Count 259 K/mm3 (150-450); Red Blood Count 3.25 M/mm3 (4.7-6.0); Red Cell Distribution Width 16.4 % (11.5-14.0); White Blood Count 12.4 K/mm3 (4.0-10.5)
[2020-08-08] MEDS: TIOTROPIUM BROMIDE 5 CAP INHALER IH SCH (08:25)
[2020-08-08] MEDS: CYANOCOBALAMIN 1,000 MCG TABLET PO SCH (08:25)
[2020-08-08] MEDS: AZITHROMYCIN 250 MG TABLET PO SCH (08:25)
[2020-08-08 08:56] LABS: Albumin * 1.6 gm/dl (3.4-5.0); Anion Gap 6.8 mmol/L (6.8-13.8); BUN/Creatinine Ratio 17.6 (9.0-21.6); Bilirubin, Total 0.5 mg/dL (0.0-1.1); Ca. Corrected For Albumin 9.2 mg/dL (8.4-10.2); Calcium * 7.6 mg/dL (7.9-10.9); Potassium 3.8 mmol/L (3.4-4.6); Total Protein 5.7 gm/dL (6.2-8.2)
--- NOTE | 2020-08-08 14:41 | PN ---
Subjective - Date and Time Seen Date: 08/08/20 Time: 08:15 Subjective Narrative: Frank reports feeling the same. Oxygen fluctuating from 3-5. He has not urinated and bladder scanner showed over 500ml of urine but he does not have any urinary symptoms. Objective - Vitals Vitals: Last Vital Signs Temp 37.1 C 08/08/20 10:00 Pulse 82 08/08/20 13:16 Resp 28 H 08/08/20 13:16 BP 125/58 08/08/20 10:00 Pulse Ox 90 L 08/08/20 13:48 - Abnormal Lab Findings Abnormal Lab Findings: Abnormal Lab Results 08/08/20 08/08/20 Range/Units 08:11 08:11 WBC 12.4 H (4.0-10.5) K/mm3 RBC 3.25 L (4.7-6.0) M/mm3 Hgb 9.2 L (13.5-18.0) gm/dL Hct 29.9 L (42.0-52.0) % MCHC 30.8 L (32-36) g/dl RDW 16.4 H (11.5-14.0) % Immature Gran % (Auto) 0.90 H (0.001-0.429) % Immature Gran # (Auto) 0.11 H (0.000-0.0310) K/mm3 Neutrophils % 86.4 H (42-75.0) % Lymphocytes % 4.5 L (20-51) % Neutrophils # 10.7 H (1.3-6.0) K/mm3 Lymphocytes # 0.56 L (1.5-3.5) k/mm3 Carbon Dioxide 33.0 H (24-32.6) mmol/L BUN 25 H (6-23) mg/dL Creatinine 1.42 H (0.4-1.4) mg/dL Est GFR (Non-Af Amer) 50 L (60-130) mL/min Random Glucose 115 H (70-110) mg/dL Calcium 7.6 L (7.9-10.9) mg/dL ALT 16 L (19-67) U/L Total Protein 5.7 L (6.2-8.2) gm/dL Albumin 1.6 L (3.4-5.0) gm/dl - Exam Constitutional: Present: Alert, Oriented x3, Cooperative ENT Exam: Present: hearing grossly normal Respiratory: Present: decreased breath sounds Cardiovascular/Chest: Present: regular rate, rhythm, no murmur Abdomen: Present: Normal bowel sounds, soft, nontender, nondistended Skin Exam: Present: normal color, warm/dry, no cyanosis Appearance: Present: appropriate appearance, appropriate insight Eye contact: Present: cooperative, good eye contact, normal speech Assessment/Plan Plan Narrative: Overall stable. No significant change. Continue current treatment. Will add cornet and incentive spirometer to help improve pulmonary function. If remains stable may discharge to SNF in 2-3 days. - Problems/Diagnosis (1) Acute and chronic respiratory failure Problem: Acute Qualifiers: Respiratory failure complication: hypoxia Qualified Code(s): J96.21 - Acute and chronic respiratory failure with hypoxia (2) Pneumonia Problem: Acute Qualifiers: Pneumonia type: due to unspecified organism Laterality: bilateral Lung location: lower lobe of lung Qualified Code(s): J18.9 - Pneumonia, unspecified organism (3) CHF (congestive heart failure) Problem: Chronic Qualifiers: Heart failure type: diastolic Heart failure chronicity: acute on chronic Qualified Code(s): I50.33 - Acute on chronic diastolic (congestive) heart fa ilure (4) AAA (abdominal aortic aneurysm) without rupture Problem: Chronic (5) COPD (chronic obstructive pulmonary disease) Problem: Chronic Qualifiers: COPD type: emphysema Emphysema type: panlobular Qualified Code(s): J43.1 - Panlobular emphysema (6) CKD (chronic kidney disease) Problem: Chronic Qualifiers: Chronic kidney disease stage: stage 3 (moderate) (7) Lumbar compression fracture Problem: Acute Qualifiers: Lumbar vertebra fracture level: L1 Fracture healing: with routine healing
[2020-08-08] MEDS: SIMVASTATIN 20 MG TABLET PO SCH (20:04)
[2020-08-09] MEDS: ALBUTEROL SULFATE 2.5 MG/0.5 ML VIAL.NEB IH SCH ×4 (00:17→18:08)
[2020-08-09] MEDS: BUDESONIDE 0.25 MG/2 ML VIAL.NEB PO SCH ×2 (06:01→18:08)
[2020-08-09] MEDS: ALBUTEROL SULFATE/IPRATROPIUM 3 ML NEBU IH SCH ×2 (06:01→18:08)
[2020-08-09] MEDS: TIOTROPIUM BROMIDE 5 CAP INHALER IH SCH (08:20)
[2020-08-09] MEDS: CYANOCOBALAMIN 1,000 MCG TABLET PO SCH (08:20)
[2020-08-09 10:12] LABS: Hematocrit 29.8 % (42.0-52.0); Hemoglobin 9.3 gm/dL (13.5-18.0); Mean Cell Volume 90.3 fl (78-100); Mean Corpuscular Hemoglobin 28.2 pg (27-31); Mean Corpuscular Hgb Conc 31.2 g/dl (32-36); Mean Platelet Volume 9.9 fl (8-11.3); Neutrophil # 10.1 K/mm3 (1.3-6.0); Platelet Count 282 K/mm3 (150-450); White Blood Count 11.8 K/mm3 (4.0-10.5)
[2020-08-09 10:49] LABS: Albumin * 1.6 gm/dl (3.4-5.0); Anion Gap 9.8 mmol/L (6.8-13.8); BUN/Creatinine Ratio 16.7 (9.0-21.6); Bilirubin, Total 0.5 mg/dL (0.0-1.1); Ca. Corrected For Albumin 9.2 mg/dL (8.4-10.2); Calcium * 7.6 mg/dL (7.9-10.9); Carbon Dioxide 32.9 mmol/L (24-32.6); Potassium 3.7 mmol/L (3.4-4.6); Total Protein 5.9 gm/dL (6.2-8.2)
[2020-08-09] MEDS ORDERED: FUROSEMIDE 10 MG/ML VIAL IV ONE (13:34)
--- NOTE | 2020-08-09 13:45 | PN ---
Subjective - Date and Time Seen Date: 08/09/20 Time: 09:15 Subjective Narrative: Frank reports feeling ok today. No changes. He reports shortness of breath at times. Oxygen requirements continue to fluctuate from 3-5lpm, worse when he moves. He reports no bowel movement for a couple days. He reports that he has been urinating. Objective - Vitals Vitals: Last Vital Signs Temp 37.1 C 08/09/20 10:00 Pulse 90 08/09/20 13:34 Resp 28 H 08/09/20 13:34 BP 100/58 08/09/20 10:00 Pulse Ox 98 08/09/20 13:18 - Abnormal Lab Findings Abnormal Lab Findings: Abnormal Lab Results 08/09/20 08/09/20 Range/Units 10:08 10:08 WBC 11.8 H (4.0-10.5) K/mm3 RBC 3.30 L (4.7-6.0) M/mm3 Hgb 9.3 L (13.5-18.0) gm/dL Hct 29.8 L (42.0-52.0) % MCHC 31.2 L (32-36) g/dl RDW 16.0 H (11.5-14.0) % Immature Gran % (Auto) 0.60 H (0.001-0.429) % Immature Gran # (Auto) 0.07 H (0.000-0.0310) K/mm3 Neutrophils % 86.0 H (42-75.0) % Lymphocytes % 5.6 L (20-51) % Neutrophils # 10.1 H (1.3-6.0) K/mm3 Lymphocytes # 0.66 L (1.5-3.5) k/mm3 Chloride 95 L (97-106) mmol/L Carbon Dioxide 32.9 H (24-32.6) mmol/L BUN 24 H (6-23) mg/dL Creatinine 1.44 H (0.4-1.4) mg/dL Est GFR (Non-Af Amer) 49 L (60-130) mL/min Random Glucose 123 H (70-110) mg/dL Calcium 7.6 L (7.9-10.9) mg/dL Total Protein 5.9 L (6.2-8.2) gm/dL Albumin 1.6 L (3.4-5.0) gm/dl - Exam Constitutional: Present: Alert, Oriented x3, Cooperative ENT Exam: Present: hard of hearing Respiratory: Present: decreased breath sounds Cardiovascular/Chest: Present: regular rate, rhythm, no murmur Abdomen: Present: Normal bowel sounds, soft, nontender, nondistended Extremity: Absent: lower extremity edema Skin Exam: Present: normal color, warm/dry, no cyanosis Appearance: Present: appropriate appearance, appropriate insight Eye contact: Present: cooperative, good eye contact, normal speech Thoughts: Present: normal thought pattern, no apparent hallucination Assessment/Plan Plan Narrative: Overall his condition appears to be stable. His blood pressure has improved enough to give a dose of lasix today. Will start stool softeners. I feel like his medical condition may be at a new baseline and he will need strengthening at SNF. Consider discharge to senior living in next 1-2 days. - Problems/Diagnosis (1) Acute and chronic respiratory failure Problem: Acute Qualifiers: Respiratory failure complication: hypoxia Qualified Code(s): J96.21 - Acute and chronic respiratory failure with hypoxia (2) Pneumonia Problem: Acute Qualifiers: Pneumonia type: due to unspecified organism Laterality: bilateral Lung location: lower lobe of lung Qualified Code(s): J18.9 - Pneumonia, unspecified organism (3) CHF (congestive heart failure) Problem: Chronic Qualifiers: Heart failure type: diastolic Heart failure chronicity: acute on chronic Qualified Code(s): I50.33 - Acute on chronic diastolic (congestive) heart failure (4) AAA (abdominal aortic aneurysm) without rupture Problem: Chronic (5) COPD (chronic obstructive pulmonary disease) Problem: Chronic Qualifiers: COPD type: emphysema Emphysema type: panlobular Qualified Code(s): J43.1 - Panlobular emphysema (6) CKD (chronic kidney disease) Problem: Chronic Qualifiers: Chronic kidney disease stage: stage 3 (moderate) (7) Lumbar compression fracture Problem: Acute Qualifiers: Lumbar vertebra fracture level: L1 Fracture healing: with routine healing
[2020-08-09] MEDS: POLYETHYLENE GLYCOL 3350 17 GM PACKET PO SCH (14:49)
[2020-08-09] MEDS: SENNOSIDES/DOCUSATE SODIUM 1 TAB TABLET PO SCH (20:48)
[2020-08-09] MEDS: SIMVASTATIN 20 MG TABLET PO SCH (20:49)
[2020-08-10] MEDS: ALBUTEROL SULFATE 2.5 MG/0.5 ML VIAL.NEB IH SCH ×4 (00:20→18:11)
[2020-08-10] MEDS: BUDESONIDE 0.25 MG/2 ML VIAL.NEB PO SCH ×2 (06:05→18:11)
[2020-08-10] MEDS: ALBUTEROL SULFATE/IPRATROPIUM 3 ML NEBU IH SCH ×2 (06:06→18:11)
[2020-08-10 08:19] LABS: Hematocrit 30.8 % (42.0-52.0); Hemoglobin 9.5 gm/dL (13.5-18.0); Mean Cell Volume 90.9 fl (78-100); Mean Corpuscular Hgb Conc 30.8 g/dl (32-36); Mean Platelet Volume 9.9 fl (8-11.3); Neutrophil # 7.5 K/mm3 (1.3-6.0); Neutrophil % 81.2 % (42-75.0); Platelet Count 325 K/mm3 (150-450); Red Blood Count 3.39 M/mm3 (4.7-6.0); White Blood Count 9.2 K/mm3 (4.0-10.5)
[2020-08-10 08:31] LABS: Albumin * 1.6 gm/dl (3.4-5.0); Anion Gap 6.3 mmol/L (6.8-13.8); BUN/Creatinine Ratio 16.2 (9.0-21.6); Bilirubin, Total 0.4 mg/dL (0.0-1.1); Ca. Corrected For Albumin 9.6 mg/dL (8.4-10.2); Carbon Dioxide 34.5 mmol/L (24-32.6); Potassium 3.8 mmol/L (3.4-4.6); Total Protein 6.5 gm/dL (6.2-8.2)
[2020-08-10] MEDS: CYANOCOBALAMIN 1,000 MCG TABLET PO SCH (09:01)
[2020-08-10] MEDS: POLYETHYLENE GLYCOL 3350 17 GM PACKET PO SCH (09:02)
[2020-08-10] MEDS: TIOTROPIUM BROMIDE 5 CAP INHALER IH SCH (09:06)
[2020-08-10] MEDS ORDERED: LEVOFLOXACIN 750 MG TABLET PO SCH (11:00)
[2020-08-10] MEDS: SIMVASTATIN 20 MG TABLET PO SCH (20:44)
[2020-08-10] MEDS: SENNOSIDES/DOCUSATE SODIUM 1 TAB TABLET PO SCH (20:44)
--- NOTE | 2020-08-10 23:33 | PN ---
Subjective - Date and Time Seen Date: 08/10/20 Time: 09:00 Subjective Narrative: Frank reports feeling the same today. Sputum results showed resistant to antibiotics, will change to levaquin. WBC did improve to normal. He continues to fluctuate from 2-6lpm, needing more with activity. This appears to be more than his baseline, but perhaps it was always occurring without his knowledge. Maybe it will improve with the change in antibiotics. Will start levaquin and monitor for the next 1-2 days and then plan to discharge to SNF for strengthening once he is known to be medically stable. Objective - Vitals Vitals: Last Vital Signs Temp 36.6 C 08/10/20 18:21 Pulse 80 08/10/20 18:21 Resp 20 08/10/20 18:21 BP 104/56 08/10/20 18: Pulse Ox 98 08/10/20 18:21 - Abnormal Lab Findings Abnormal Lab Findings: Abnormal Lab Results 08/10/20 08/10/20 Range/Units 08:12 08:12 RBC 3.39 L (4.7-6.0) M/mm3 Hgb 9.5 L (13.5-18.0) gm/dL Hct 30.8 L (42.0-52.0) % MCHC 30.8 L (32-36) g/dl RDW 16.0 H (11.5-14.0) % Immature Gran % (Auto) 0.90 H (0.001-0.429) % Immature Gran # (Auto) 0.08 H (0.000-0.0310) K/mm3 Neutrophils % 81.2 H (42-75.0) % Lymphocytes % 8.7 L (20-51) % Neutrophils # 7.5 H (1.3-6.0) K/mm3 Lymphocytes # 0.80 L (1.5-3.5) k/mm3 Carbon Dioxide 34.5 H (24-32.6) mmol/L Anion Gap 6.3 L (6.8-13.8) mmol/L Est GFR (Non-Af Amer) 53 L (60-130) mL/min AST 63 H (0-48) U/L Albumin 1.6 L (3.4-5.0) gm/dl Assessment/Plan - Problems/Diagnosis (1) Acute and chronic respiratory failure Problem: Acute Qualifiers: Respiratory failure complication: hypoxia Qualified Code(s): J96.21 - Acute and chronic respiratory failure with hypoxia (2) Pneumonia Problem: Acute Qualifiers: Pneumonia type: due to unspecified organism Laterality: bilateral Lung location: lower lobe of lung Qualified Code(s): J18.9 - Pneumonia, unspecified organism (3) CHF (congestive heart failure) Problem: Chronic Qualifiers: Heart failure type: diastolic Heart failure chronicity: acute on chronic Qualified Code(s): I50.33 - Acute on chronic diastolic (congestive) heart failure (4) AAA (abdominal aortic aneurysm) without rupture Problem: Chronic (5) COPD (chronic obstructive pulmonary disease) Problem: Chronic Qualifiers: COPD type: emphysema Emphysema type: panlobular Qualified Code(s): J43.1 - Panlobular emphysema (6) CKD (chronic kidney disease) Problem: Chronic Qualifiers: Chronic kidney disease stage: stage 3 (moderate) (7) Lumbar compression fracture Problem: Acute Qualifiers: Lumbar vertebra fracture level: L1 Fracture healing: with routine healing
[2020-08-11] MEDS: ALBUTEROL SULFATE 2.5 MG/0.5 ML VIAL.NEB IH SCH ×2 (01:17→06:05)
[2020-08-11] MEDS: ALBUTEROL SULFATE/IPRATROPIUM 3 ML NEBU IH SCH (05:12)
[2020-08-11] MEDS: BUDESONIDE 0.25 MG/2 ML VIAL.NEB PO SCH (06:05)
[2020-08-11] MEDS: POLYETHYLENE GLYCOL 3350 17 GM PACKET PO SCH (08:08)
[2020-08-11] MEDS: TIOTROPIUM BROMIDE 5 CAP INHALER IH SCH (08:08)
[2020-08-11] MEDS: CYANOCOBALAMIN 1,000 MCG TABLET PO SCH (08:08)
--- NOTE | 2020-08-11 11:59 | DS ---
(1) Acute and chronic respiratory failure Problem: Acute Qualifiers: Respiratory failure complication: hypoxia Qualified Code(s): J96.21 - Acute and chronic respiratory failure with hypoxia (2) Pneumonia Problem: Acute Qualifiers: Pneumonia type: due to unspecified organism Laterality: bilateral Lung location: lower lobe of lung Qualified Code(s): J18.9 - Pneumonia, unspecified organism (3) CHF (congestive heart failure) Problem: Chronic Qualifiers: Heart failure type: diastolic Heart failure chronicity: acute on chronic Qualified Code(s): I50.33 - Acute on chronic diastolic (congestive) heart failur e (4) AAA (abdominal aortic aneurysm) without rupture Problem: Chronic (5) COPD (chronic obstructive pulmonary disease) Problem: Chronic Qualifiers: COPD type: emphysema Emphysema type: panlobular Qualified Code(s): J43.1 - Panlobular emphysema (6) CKD (chronic kidney disease) Problem: Chronic Qualifiers: 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 He chronically uses 2lpm of oxygen at home but was needing anywhere from 3-5lpm to keep his oxygen at 90% or higher. He was started on rocephin and azithromycin for treatment of pneumonia. He appeared medically stable but his oxygen requirements continued to fluctuate from 2-5lpm, moreso with activity. His WBC gradually improved. Sputum culture was obtained and when sensitivities returned he was switched to levaquin. He now reports his breathing is ok and feels stable, but he still needs more oxygen than he previously did. I am not sure if this is worsening of his chronic condition or worsened due to pneumonia. He is otherwise medically stable, but remains weak. He will need strengthening at [facility] with PT and OT. They may adjust his oxygen from 2-5lpm as needed to keep him at 90% or above. During evaluation it was also noted that he had a 4cm AAA which may be followed once a year. It is not of size to consider surgical treatment. He was also identified as having a L1 compression fracture. He has not had significant pain from this and may just require PT. Procedures Performed: none Results and Findings: Lab Pending Results 08/04/20 09:37: SARS-CoV-2 (PCR) Not detected 08/04/20 10:10: WBC 11.3 H, RBC 3.56 L, Hgb 10.1 L, Hct 32.8 L, MCV 92.1, MCH 28.4, MCHC 30.8 L, RDW 15.9 H, Plt Count 257, MPV 9.9, Immature Gran % (Auto) 0.90 H, Immature Gran # (Auto) 0.10 H, Neutrophils % 87.4 H, Lymphocytes % 5.6 L, Monocytes % 5.2, Eosinophils % 0.7, Basophils % 0.2, Nucleated RBC % 0.0, Neutrophils # 9.9 H, Lymphocytes # 0.64 L, Monocytes # 0.6, Eosinophils # 0.1, Absolute Basophils 0.0 08/04/20 10:10: Sodium 136, Plasma Sodium 136, Potassium 4.1, Chloride 98, Carbon Dioxide 32.4, Anion Gap 9.7, BUN 41 H D, Creatinine 1.95 H D, Est GFR (Non-Af Amer) 35 L D, BUN/Creatinine Ratio 21.0, Random Glucose 98, Calcium 8.2, Calcium Adj for Albumin 9.5, Total Bilirubin 0.8, AST 22, ALT 22, Alkaline Phosphatase 101, Troponin I 0.260 H*, B-Natriuretic [place]ptide [place] 76720 H, Total Protein 7.3, Albumin 2.0 L 08/04/20 10:10: D-Dimer 6.02 H 08/04/20 10:10: Lactic Acid, Venous 1.7 08/04/20 10:31: pCO2 45.6, pO2 52.5 L, HCO3 29.7 H, Total CO2 31.1 H, Base Excess 4.8 H, ABG pH 7.43, ABG O2 Sat (Measured) 87.9 L 08/04/20 12:23: Troponin I 0.225 H* 08/04/20 20:00: Urine Color Yellow, Urine Appearance Clear, Urine pH 5.5, Ur Specific [place] 1.015, Urine Protein Negative, Urine Glucose (UA) Negative, Urine Ketones 5, Urine Blood 25 H, Urine Nitrate Negative, Urine Bilirubin Negative, Urine Urobilinogen Normal, Ur Leukocyte Esterase Negative, Urine RBC 0-5, Urine WBC None seen, Ur Epithelial Cells None seen, Urine Bacteria 1+ H, Urine Culture Comments No culture indicated 08/06/20 08:44: WBC 10.2, RBC 3.21 L, Hgb 9.0 L, Hct 29.5 L, MCV 91.9, MCH 28.0, MCHC 30.5 L, RDW 16.2 H, Plt Count 250, MPV 9.6, Immature Gran % (Auto) 0.60 H, Immature Gran # (Auto) 0.06 H, Neutrophils % 85.7 H, Lymphocytes % 6.2 L, Monocytes % 6.4, Eosinophils % 1.0, Basophils % 0.1, Nucleated RBC % 0.0, Neutrophils # 8.8 H, Lymphocytes # 0.63 L, Monocytes # 0.7, Eosinophils # 0.1, Absolute Basophils 0.0 08/06/20 08:44: Sodium 138, Plasma Sodium 139, Potassium 3.1 L D, Chloride 101, Carbon Dioxide 34.0 H, Anion Gap 6.1 L, BUN 31 H, Creatinine 1.60 H, Est GFR (Non-Af Amer) 44 L D, BUN/Creatinine Ratio 19.4, Random Glucose 137 H D, Calcium 8.0, Calcium Adj for Albumin 9.5, Total Bilirubin 0.5, AST 16, ALT 16 L, Alkaline Phosphatase 80, Total Protein 6.3, Albumin 1.7 L 08/07/20 06:25: WBC 10.9 H, RBC 3.09 L, Hgb 8.7 L, Hct 28.5 L, MCV 92.2, MCH 28.2, MCHC 30.5 L, RDW 16.3 H, Plt Count 244, MPV 10.1, Immature Gran % (Auto) 0.80 H, Immature Gran # (Auto) 0.09 H, Neutrophils % 81.3 H, Lymphocytes % 9.1 L, Monocytes % 7.4, Eosinophils % 1.0, Basophils % 0.4, Nucleated RBC % 0.0, Neutrophils # 8.8 H, Lymphocytes # 0.99 L, Monocytes # 0.8, Eosinophils # 0.1, Absolute Basophils 0.0 08/07/20 06:25: Sodium 137, Plasma Sodium 137, Potassium 3.8 D, Chloride 102, Carbon Dioxide 34.7 H, Anion Gap 4.1 L, BUN 26 H, Creatinine 1.51 H, Est GFR (Non-Af Amer) 47 L, BUN/Creatinine Ratio 17.2, Random Glucose 110, Calcium 7.6 L, Calcium Adj for Albumin 9.3, Total Bilirubin 0.5, AST 18, ALT 15 L, Alkaline Phosphatase 70, Total Protein 5.6 L, Albumin 1.5 L 08/08/20 08:11: WBC 12.4 H, RBC 3.25 L, Hgb 9.2 L, Hct 29.9 L, MCV 92.0, MCH 28.3, MCHC 30.8 L, RDW 16.4 H, Plt Count 259, MPV 9.9, Immature Gran % (Auto) 0.90 H, Immature Gran # (Auto) 0.11 H, Neutrophils % 86.4 H, Lymphocytes % 4.5 L, Monocytes % 7.3, Eosinophils % 0.7, Basophils % 0.2, Nucleated RBC % 0.0, Neutrophils # 10.7 H, Lymphocytes # 0.56 L, Monocytes # 0.9, Eosinophils # 0.1, Absolute Basophils 0.0 08/08/20 08:11: Sodium 135, Plasma Sodium 135, Potassium 3.8, Chloride 99, Carbon Dioxide 33.0 H, Anion Gap 6.8, BUN 25 H, Creatinine 1.42 H, Est GFR (Non- Af Amer) 50 L, BUN/Creatinine Ratio 17.6, Random Glucose 115 H, Calcium 7.6 L, Calcium Adj for Albumin 9.2, Total Bilirubin 0.5, AST 24, ALT 16 L, Alkaline Phosphatase 83, Total Protein 5.7 L, Albumin 1.6 L 08/09/20 10:08: WBC 11.8 H, RBC 3.30 L, Hgb 9.3 L, Hct 29.8 L, MCV 90.3, MCH 28.2, MCHC 31.2 L, RDW 16.0 H, Plt Count 282, MPV 9.9, Immature Gran % (Auto) 0.60 H, Immature Gran # (Auto) 0.07 H, Neutrophils % 86.0 H, Lymphocytes % 5.6 L, Monocytes % 7.1, Eosinophils % 0.5, Basophils % 0.2, Nucleated RBC % 0.0, N eutrophils # 10.1 H, Lymphocytes # 0.66 L, Monocytes # 0.8, Eosinophils # 0.1, Absolute Basophils 0.0 08/09/20 10:08: Sodium 134, Plasma Sodium 134, Potassium 3.7, Chloride 95 L, Carbon Dioxide 32.9 H, Anion Gap 9.8, BUN 24 H, Creatinine 1.44 H, Est GFR (Non- Af Amer) 49 L, BUN/Creatinine Ratio 16.7, Random Glucose 123 H, Calcium 7.6 L, Calcium Adj for Albumin 9.2, Total Bilirubin 0.5, AST 44, ALT 26, Alkaline Phosphatase 89, Total Protein 5.9 L, Albumin 1.6 L 08/10/20 08:12: WBC 9.2 D, RBC 3.39 L, Hgb 9.5 L, Hct 30.8 L, MCV 90.9, MCH 28.0, MCHC 30.8 L, RDW 16.0 H, Plt Count 325, MPV 9.9, Immature Gran % (Auto) 0.90 H, Immature Gran # (Auto) 0.08 H, Neutrophils % 81.2 H, Lymphocytes % 8.7 L, Monocytes % 7.7, Eosinophils % 1.1, Basophils % 0.4, Nucleated RBC % 0.0, Neutrophils # 7.5 H, Lymphocytes # 0.80 L, Monocytes # 0.7, Eosinophils # 0.1, Absolute Basophils 0.0 08/10/20 08:12: Sodium 135, Plasma Sodium 135, Potassium 3.8, Chloride 98, Carbon Dioxide 34.5 H, Anion Gap 6.3 L, BUN 22, Creatinine 1.36, Est GFR (Non-Af Amer) 53 L, BUN/Creatinine Ratio 16.2, Random Glucose 103, Calcium 8.0, Calcium Adj for Albumin 9.6, Total Bilirubin 0.4, AST 63 H, ALT 35, Alkaline Phosphatase 95, Total Protein 6.5, Albumin 1.6 L Discharge Location: [facility] Disposition: SNF Condition: Stable Level of Care: SNF Discharge Activity: Activity as tolerated Discharge Diet: Low salt Penitentiary Therapy: Physical Therapy, Occupation Therapy Referrals: Elizabeth Hope MD [Primary Care Provider] - One Week (Video visit) Problem Oriented Discharge Instructions to Patient/Family: Community-Acquired Pneumonia, Adult, [id number], Spinal Compression Fracture Additional Patient Instructions (free text): Follow up televisit with August 20 at 11:15 a.m. To [facility] for therapies, PT and OT to evaluate and treat. Oxygen at 2-5L nasal cannula continuous. Titrate to keep greater than 90%. If patient continues to decline to Prescriptions (Any new or edited meds): Levofloxacin [Levaquin] 750 mg PO Q48H #5 tab Transmission Status: Pending to [facility] Complete Home Medications List: Complete Home Medication List: cyanocobalamin (vitamin B-12) 1,000 mcg tablet 1,000 mcg PO DAILY #30 tab 02/26/18 albuterol sulfate 90 mcg/actuation breath activated powder inhaler 2 inh INHALATION Q6H #1 ea 08/29/19 fluticasone propionate 115 mcg-salmeterol 21 mcg/actuation HFA inhaler 2 inh IH BID #12 g 08/30/19 furosemide 20 mg tablet 20 mg PO DAILY #30 tab 06/08/20 ipratropium 0.5 mg-albuterol 3 mg (2.5 mg base)/3 mL nebulization soln 3 ml IH BID #15 ml 07/02/20 Simvastatin [Zocor] 20 mg PO HS 08/04/20 Umeclidinium [place] [Incruse Ellipta] 62.5 mcg IH DAILY 08/04/20 Acetaminophen [Tylenol] 1,000 mg PO Q6H PRN tablet 08/11/20 Levofloxacin [Levaquin] 750 mg PO Q48H #5 tab 08/11/20 Polyethylene Glycol 3350 [Miralax] 17 gm PO DAILY PRN packet 08/11/20 Sennosides/Docusate Sodium [Senokot-S] 1 tab PO HS PRN tablet 08/11/20 Forms: Patient Portal Registration
[2020-08-11 13:48] VITALS: BP 104/56
== END 2020-08-11 12:52 | DRG 551 ==
LOC: ER 09:21 → MS 13:26
PROVIDERS: ADMIT Family Medicine; ATTEND Family Medicine
DX: N18.30 Chronic kidney disease, stage 3 unspecified; J43.1 Panlobular emphysema; S32.010A Wedge compression fracture of first lumbar vertebra, initial encounter for closed fracture; I71.4 Abdominal aortic aneurysm, without rupture; I13.0 Hypertensive heart and chronic kidney disease with heart failure and stage 1 through stage 4 chronic kidney disease, or unspecified chronic kidney disease; I50.33 Acute on chronic diastolic (congestive) heart failure; J18.9 Pneumonia, unspecified organism; J96.21 Acute and chronic respiratory failure with hypoxia; W19.XXXA Unspecified fall, initial encounter